=== PATIENT | male | born 1960 | race African-American/Black ===

== ENCOUNTER 2020-11-04 13:06 | Emergency (ER) | payer MEDICAID ==
[~2020-11-04] VITALS: Ht 177.8 cm; Wt 64.6 kg
[2020-11-04] MEDS ORDERED: KETOROLAC 60MG/2ML VIAL IM ONE (17:15)
[2020-11-04] MEDS ORDERED: TRAM50TA3 MT (17:17)
[2020-11-04] MEDS ORDERED: BO1 TP (17:17)
[2020-11-04] MEDS ORDERED: ACET-2708 MT (17:17)
[2020-11-04 17:23] VITALS: BP 153/76
== END 2020-11-04 17:53 | disposition home or self-care (01) ==
LOC: ER 13:06
DX: M79.642 Pain in left hand (principal); Z98.890 Other specified postprocedural states; Z79.899 Other long term (current) drug therapy; F17.200 Nicotine dependence, unspecified, uncomplicated
CPT/HCPCS: 96372; 99283; J1885